=== PATIENT | male | born 1935 | race Caucasian/White ===

== ENCOUNTER 2023-02-25 10:39 | Inpatient (IN) | payer OTHER, MEDICARE ==
[2023-02-25 11:47] LABS: #Monocytes 0.4 thou/uL (0.11-0.59); #Neutrophils 7.4 thou/uL (1.40-6.50); %Basophils 0.4 % (0.0-1.0); %Eosinophils 0.5 % (0.0-10.0); %Lymphocytes 6.9 % (21.0-51.0); %Monocytes 5.2 % (0.0-10.0); %Neutrophils 86.9 % (42.0-75.0); Mean Corpuscular HGB CONC 33.8 g/dL (32.0-36.0); Mean Corpuscular Hemoglobin 32.1 pg (27.0-31.0); Mean Corpuscular Volume 94.9 fl (78.0-98.0); Mean Platelet Volume 10.7 fL (7.4-10.4); Platelet Count 167 10x3/uL (130-400); RBC Distribution Width 14.2 % (11.5-14.5); Red Blood Cell (RBC) Count 3.74 mill/uL (4.70-6.10); White Blood Cell (WBC) Count 8.5 10x3/uL (4.8-10.8)
[2023-02-25 12:07] LABS: INR-International Normal Ratio 1.1; Prothrombin Time 14.2 sec (12.0-14.7)
[2023-02-25 12:08] LABS: PTT 26.8 sec (22.9-36.1)
[2023-02-25 12:10] LABS: ALT (SGPT) 36 U/L (8-55); AST (SGOT) 59 U/L (5-34); Albumin 4.2 g/dL (3.4-4.8); Alkaline Phosphatase 76 U/L (40-110); Anion Gap 13 mmol/L (10-20); BUN (Urea Nitrogen) 20 mg/dL (8.4-25.7); Bilirubin, Total 0.7 mg/dL (0.2-1.2); Calc. Creatinine Clearance 0 mL/min (70-130); Calcium 9.7 mg/dL (7.8-10.44); Carbon Dioxide 31 mmol/L (23-31); Chloride 98 mmol/L (98-107); Estimated GFR 87; Globulin 2.5 g/dL (2.4-3.5); Glucose 114 mg/dL (83-110); Protein, Total 6.7 g/dL (5.8-8.1); Sodium 139 mmol/L (136-145)
[2023-02-25 12:32] LABS: CKMB 8.8 ng/mL (0-6.6)
[2023-02-25] MEDS ORDERED: Mag-Al 1200 mg/1200 mg/30 ML UDCUP PO PRN (14:22)
[2023-02-25] MEDS ORDERED: niCARdipine 25 MG in Sodium Chloride 0.9% 250 ML 250 ML IVPB PRN (14:22)
[2023-02-25] MEDS ORDERED: Acetaminophen 650 MG Suppository PR PRN (14:26)
[2023-02-25] MEDS ORDERED: Sodium Chloride 0.9% 1,000 ML IV SCH ×2 (14:30→19:45)
[2023-02-25] MEDS ORDERED: Electrolyte Replacement Protocol 1 EACH FS SCH (14:45)
[2023-02-25] MEDS ORDERED: Potassium Chloride 40 MEQ in Premix Bag 1 BAG IVPB SCH (14:45)
[2023-02-25] MEDS ORDERED: Electrolyte Replacement Protocol FS PRN (15:00)
[2023-02-25 16:12] LABS: Troponin I 0.049 ng/mL (< 0.028)
[2023-02-25] MEDS ORDERED: Potassium Chloride 20 MEQ/100 ML PREMIX BAG ONE ×2 (17:17→17:19)
[2023-02-25] MEDS: Potassium Chloride 20 MEQ in Premix Bag 1 BAG IVPB SCH ×3 (17:26→20:24)
[2023-02-25] MEDS: Famotidine/PF 20 mg/2ml Vial SLOW IVP SCH (20:25)
[2023-02-26] MEDS: Famotidine/PF 20 mg/2ml Vial SLOW IVP SCH ×2 (09:53→21:18)
[2023-02-26] MEDS ORDERED: Labetalol HCl 100 MG/20 ML VIAL SLOW IVP PRN (12:12)
[2023-02-26] MEDS ORDERED: Amlodipine 10 MG TAB PO SCH (12:12)
[2023-02-26 12:32] LABS: #Eosinphils 0.1 thou/uL (0.0-0.7); #Monocytes 0.5 thou/uL (0.11-0.59); %Basophils 0.4 % (0.0-1.0); %Eosinophils 1.4 % (0.0-10.0); %Lymphocytes 10.1 % (21.0-51.0); %Monocytes 6.6 % (0.0-10.0); Hemoglobin 12.6 g/dL (14.0-18.0); Mean Corpuscular HGB CONC 32.1 g/dL (32.0-36.0); Mean Corpuscular Hemoglobin 31.2 pg (27.0-31.0); Mean Platelet Volume 10.7 fL (7.4-10.4); Platelet Count 158 10x3/uL (130-400); RBC Distribution Width 14.3 % (11.5-14.5); Red Blood Cell (RBC) Count 4.04 mill/uL (4.70-6.10); White Blood Cell (WBC) Count 7.4 10x3/uL (4.8-10.8)
[2023-02-26 12:47] LABS: Anion Gap 15 mmol/L (10-20); BUN (Urea Nitrogen) 10 mg/dL (8.4-25.7); Calc. Creatinine Clearance 83 mL/min (70-130); Carbon Dioxide 25 mmol/L (23-31); Cardiac Risk 2.9 (Less than 4.5); Chloride 105 mmol/L (98-107); Cholesterol 134 mg/dl (< 200 Desired); Estimated GFR 92; Glucose 96 mg/dL (83-110); HDL Cholesterol 47 mg/dL (>60 Neg Risk); LDL Cholesterol, Calculated 73 mg/dL; Magnesium 2.1 mg/dL (1.6-2.6); Potassium 3.3 mmol/L (3.5-5.1); Sodium 142 mmol/L (136-145); Triglycerides 71 mg/dL (Less than 150)
[2023-02-26] MEDS: Potassium Chloride 20 MEQ in Premix Bag 1 BAG IVPB SCH (16:07)
[2023-02-26] MEDS: Atorvastatin Calcium 40 MG TAB PO SCH (21:18)
[2023-02-27] MEDS: hydrALAZINE 20 MG/ML VIAL SLOW IVP PRN (03:27)
[2023-02-27 05:29] LABS: #Basophils 0.1 thou/uL (0.0-0.2); #Monocytes 0.8 thou/uL (0.11-0.59); #Neutrophils 9.5 thou/uL (1.40-6.50); %Basophils 0.4 % (0.0-1.0); %Eosinophils 0.3 % (0.0-10.0); %Lymphocytes 8.1 % (21.0-51.0); %Monocytes 7.1 % (0.0-10.0); %Neutrophils 83.7 % (42.0-75.0); Hemoglobin 14.1 g/dL (14.0-18.0); Mean Corpuscular HGB CONC 32.4 g/dL (32.0-36.0); Mean Corpuscular Hemoglobin 31.5 pg (27.0-31.0); Mean Corpuscular Volume 97.3 fl (78.0-98.0); Mean Platelet Volume 12.1 fL (7.4-10.4); RBC Distribution Width 14.4 % (11.5-14.5); Red Blood Cell (RBC) Count 4.47 mill/uL (4.70-6.10); White Blood Cell (WBC) Count 11.3 10x3/uL (4.8-10.8)
[2023-02-27 05:35] LABS: Platelet Count 71 10x3/uL (130-400)
[2023-02-27 05:59] LABS: Anion Gap 17 mmol/L (10-20); BUN (Urea Nitrogen) 11 mg/dL (8.4-25.7); Calc. Creatinine Clearance 72 mL/min (70-130); Calcium 9.5 mg/dL (7.8-10.44); Carbon Dioxide 24 mmol/L (23-31); Chloride 105 mmol/L (98-107); Estimated GFR 88; Glucose 129 mg/dL (83-110); Potassium 4.5 mmol/L (3.5-5.1); Sodium 141 mmol/L (136-145)
[2023-02-27] MEDS: Levothyroxine Sodium 50 MCG TAB PO SCH (06:29)
[2023-02-27] MEDS: Acetaminophen 325 MG TAB PO PRN (08:55)
[2023-02-27] MEDS: Amlodipine 10 MG TAB PO SCH (08:55)
[2023-02-27] MEDS: Losartan 25 MG TAB PO SCH (08:56)
[2023-02-27] MEDS: Famotidine/PF 20 mg/2ml Vial SLOW IVP SCH ×2 (08:59→22:04)
[2023-02-27] MEDS: Dextrose 5% in Water 1,000 ML IV SCH (13:28)
[2023-02-27] MEDS ORDERED: Morphine 4 MG/ML VIAL SLOW IVP PRN (15:17)
[2023-02-27] MEDS ORDERED: OLANZapine 10 MG VIAL IM SCH (21:30)
[2023-02-27] MEDS ORDERED: Sterile Water 10 ML VIAL FS PRN (21:30)
[2023-02-27] MEDS: Atorvastatin Calcium 40 MG TAB PO SCH (23:53)
[2023-02-28] MEDS: Dextrose 5% in Water 1,000 ML IV SCH ×2 (03:19→15:32)
[2023-02-28 07:02] LABS: #Eosinphils 0.1 thou/uL (0.0-0.7); #Monocytes 0.4 thou/uL (0.11-0.59); #Neutrophils 5.5 thou/uL (1.40-6.50); %Basophils 0.4 % (0.0-1.0); %Eosinophils 1.6 % (0.0-10.0); %Lymphocytes 10.1 % (21.0-51.0); %Monocytes 5.8 % (0.0-10.0); %Neutrophils 81.8 % (42.0-75.0); Mean Corpuscular HGB CONC 32.7 g/dL (32.0-36.0); Mean Corpuscular Hemoglobin 31.8 pg (27.0-31.0); Mean Corpuscular Volume 97.3 fl (78.0-98.0); Mean Platelet Volume 10.7 fL (7.4-10.4); Platelet Count 175 10x3/uL (130-400); Red Blood Cell (RBC) Count 3.77 mill/uL (4.70-6.10); White Blood Cell (WBC) Count 6.8 10x3/uL (4.8-10.8)
[2023-02-28 07:23] LABS: Anion Gap 13 mmol/L (10-20); BUN (Urea Nitrogen) 13 mg/dL (8.4-25.7); Calc. Creatinine Clearance 66 mL/min (70-130); Calcium 9.1 mg/dL (7.8-10.44); Carbon Dioxide 27 mmol/L (23-31); Chloride 105 mmol/L (98-107); Estimated GFR 85; Glucose 183 mg/dL (83-110); Potassium 3.5 mmol/L (3.5-5.1); Sodium 141 mmol/L (136-145)
[2023-02-28] MEDS: Levothyroxine Sodium 50 MCG TAB PO SCH (07:35)
[2023-02-28] MEDS ORDERED: Potassium Chloride 20 MEQ TAB PO SCH (08:00)
[2023-02-28] MEDS: Losartan 25 MG TAB PO SCH (09:41)
[2023-02-28] MEDS: Amlodipine 10 MG TAB PO SCH (09:41)
[2023-02-28] MEDS: Famotidine/PF 20 mg/2ml Vial SLOW IVP SCH ×2 (09:41→19:52)
[2023-02-28] MEDS: Atorvastatin Calcium 40 MG TAB PO SCH (19:57)
[2023-03-01] MEDS: Levothyroxine Sodium 50 MCG TAB PO SCH (06:14)
[2023-03-01 07:38] LABS: #Eosinphils 0.1 thou/uL (0.0-0.7); #Monocytes 0.7 thou/uL (0.11-0.59); #Neutrophils 6.7 thou/uL (1.40-6.50); %Basophils 0.2 % (0.0-1.0); %Eosinophils 1.1 % (0.0-10.0); %Lymphocytes 7.4 % (21.0-51.0); %Monocytes 8.1 % (0.0-10.0); Hemoglobin 11.8 g/dL (14.0-18.0); Mean Corpuscular HGB CONC 32.6 g/dL (32.0-36.0); Mean Corpuscular Hemoglobin 32.3 pg (27.0-31.0); Mean Corpuscular Volume 99.2 fl (78.0-98.0); Platelet Count 153 10x3/uL (130-400); RBC Distribution Width 15.4 % (11.5-14.5); Red Blood Cell (RBC) Count 3.65 mill/uL (4.70-6.10); White Blood Cell (WBC) Count 8.1 10x3/uL (4.8-10.8)
[2023-03-01 07:54] LABS: Anion Gap 15 mmol/L (10-20); BUN (Urea Nitrogen) 22 mg/dL (8.4-25.7); Calc. Creatinine Clearance 66 mL/min (70-130); Calcium 9.1 mg/dL (7.8-10.44); Carbon Dioxide 27 mmol/L (23-31); Chloride 105 mmol/L (98-107); Estimated GFR 85; Glucose 207 mg/dL (83-110); Sodium 143 mmol/L (136-145)
[2023-03-01] MEDS: Losartan 25 MG TAB PO SCH (08:26)
[2023-03-01] MEDS: Famotidine/PF 20 mg/2ml Vial SLOW IVP SCH ×2 (08:26→22:02)
[2023-03-01] MEDS: Amlodipine 10 MG TAB PO SCH (08:26)
[2023-03-01] MEDS ORDERED: Dextrose 5% in Water 1,000 ML IV PRN (09:09)
[2023-03-01] MEDS ORDERED: HumaLOG 300 UNITS/3 ML VIAL SC PRN (09:09)
[2023-03-01] MEDS ORDERED: Dextrose 50% Abboject 50 ML SYRINGE SLOW IVP PRN (09:09)
[2023-03-01] MEDS ORDERED: Morphine 2 MG/ML VIAL SLOW IVP PRN (09:09)
[2023-03-01] MEDS ORDERED: Glucagon 1 MG/ML KIT IM PRN (09:09)
[2023-03-01] MEDS: Acetaminophen 325 MG TAB PO PRN (22:02)
[2023-03-01] MEDS: Atorvastatin Calcium 40 MG TAB PO SCH (22:02)
[2023-03-01] MEDS: hydrALAZINE 20 MG/ML VIAL SLOW IVP PRN ×2 (22:02→23:45)
[2023-03-02 05:57] LABS: #Eosinphils 0.1 thou/uL (0.0-0.7); #Monocytes 0.8 thou/uL (0.11-0.59); #Neutrophils 7.3 thou/uL (1.40-6.50); %Basophils 0.3 % (0.0-1.0); %Eosinophils 0.7 % (0.0-10.0); %Lymphocytes 6.4 % (21.0-51.0); %Monocytes 9.5 % (0.0-10.0); %Neutrophils 82.6 % (42.0-75.0); Hemoglobin 11.8 g/dL (14.0-18.0); Mean Corpuscular HGB CONC 31.6 g/dL (32.0-36.0); Mean Corpuscular Hemoglobin 32.1 pg (27.0-31.0); Mean Corpuscular Volume 101.4 fl (78.0-98.0); Mean Platelet Volume 10.8 fL (7.4-10.4); Platelet Count 133 10x3/uL (130-400); RBC Distribution Width 15.4 % (11.5-14.5); Red Blood Cell (RBC) Count 3.68 mill/uL (4.70-6.10); White Blood Cell (WBC) Count 8.8 10x3/uL (4.8-10.8)
[2023-03-02 06:34] LABS: Anion Gap 17 mmol/L (10-20); BUN (Urea Nitrogen) 34 mg/dL (8.4-25.7); Calc. Creatinine Clearance 66 mL/min (70-130); Calcium 8.9 mg/dL (7.8-10.44); Carbon Dioxide 25 mmol/L (23-31); Chloride 106 mmol/L (98-107); Estimated GFR 85; Glucose 233 mg/dL (83-110); Potassium 4.7 mmol/L (3.5-5.1); Sodium 143 mmol/L (136-145)
[2023-03-02] MEDS: Levothyroxine Sodium 50 MCG TAB PO SCH (06:43)
[2023-03-02] MEDS: Losartan 25 MG TAB PO SCH (08:54)
[2023-03-02] MEDS: Amlodipine 10 MG TAB PO SCH (08:55)
[2023-03-02] MEDS: Famotidine/PF 20 mg/2ml Vial SLOW IVP SCH ×2 (08:57→21:34)
[2023-03-02] MEDS: Acetaminophen 325 MG TAB PO PRN (12:55)
[2023-03-02] MEDS ORDERED: Sodium Bicarbonate Tab 325 MG TAB PER TUBE SCH (13:15)
[2023-03-02] MEDS ORDERED: Pancrelipase DR 12,000 1 CAP PER TUBE SCH (13:15)
[2023-03-02] MEDS ORDERED: Bisacodyl 10 MG SUPP PR SCH (14:15)
[2023-03-02] MEDS ORDERED: Sodium Chloride 0.9% 1,000 ML IV SCH (20:30)
[2023-03-02] MEDS ORDERED: OLANZapine 10 MG VIAL IM SCH (20:30)
[2023-03-02] MEDS ORDERED: Sterile Water 10 ML VIAL FS SCH (20:45)
[2023-03-02] MEDS: Atorvastatin Calcium 40 MG TAB PO SCH (21:36)
[2023-03-03 05:33] LABS: #Eosinphils 0.1 thou/uL (0.0-0.7); #Monocytes 0.6 thou/uL (0.11-0.59); #Neutrophils 7.6 thou/uL (1.40-6.50); %Basophils 0.2 % (0.0-1.0); %Eosinophils 0.9 % (0.0-10.0); %Lymphocytes 6.7 % (21.0-51.0); %Monocytes 6.8 % (0.0-10.0); %Neutrophils 85.2 % (42.0-75.0); Hemoglobin 13.5 g/dL (14.0-18.0); Mean Corpuscular HGB CONC 31.8 g/dL (32.0-36.0); Mean Corpuscular Hemoglobin 31.5 pg (27.0-31.0); Mean Corpuscular Volume 98.8 fl (78.0-98.0); Mean Platelet Volume 11.1 fL (7.4-10.4); Red Blood Cell (RBC) Count 4.29 mill/uL (4.70-6.10); White Blood Cell (WBC) Count 8.9 10x3/uL (4.8-10.8)
[2023-03-03 05:39] LABS: Platelet Count 126 10x3/uL (130-400)
[2023-03-03 05:57] LABS: Anion Gap 17 mmol/L (10-20); BUN (Urea Nitrogen) 30 mg/dL (8.4-25.7); Calc. Creatinine Clearance 76 mL/min (70-130); Calcium 9.3 mg/dL (7.8-10.44); Carbon Dioxide 24 mmol/L (23-31); Chloride 107 mmol/L (98-107); Estimated GFR 88; Glucose 155 mg/dL (83-110); Potassium 4.3 mmol/L (3.5-5.1); Sodium 144 mmol/L (136-145)
[2023-03-03] MEDS: Levothyroxine Sodium 50 MCG TAB PO SCH (06:35)
[2023-03-03] MEDS: Famotidine/PF 20 mg/2ml Vial SLOW IVP SCH ×2 (08:46→20:56)
[2023-03-03] MEDS: Losartan 25 MG TAB PO SCH (08:46)
[2023-03-03] MEDS: Amlodipine 10 MG TAB PO SCH (08:46)
[2023-03-03] MEDS: Rivastigmine 1.5 MG CAP PO SCH (08:47)
[2023-03-03] MEDS: Atorvastatin Calcium 40 MG TAB PO SCH (20:55)
[2023-03-04] MEDS: Levothyroxine Sodium 50 MCG TAB PO SCH (05:19)
[2023-03-04 05:43] LABS: #Eosinphils 0.1 thou/uL (0.0-0.7); #Monocytes 0.5 thou/uL (0.11-0.59); #Neutrophils 5.7 thou/uL (1.40-6.50); %Basophils 0.4 % (0.0-1.0); %Lymphocytes 10.1 % (21.0-51.0); %Monocytes 6.9 % (0.0-10.0); %Neutrophils 80.2 % (42.0-75.0); Mean Corpuscular HGB CONC 32.4 g/dL (32.0-36.0); Mean Corpuscular Hemoglobin 31.8 pg (27.0-31.0); Mean Corpuscular Volume 98.1 fl (78.0-98.0); Platelet Count 141 10x3/uL (130-400); RBC Distribution Width 14.6 % (11.5-14.5); Red Blood Cell (RBC) Count 3.77 mill/uL (4.70-6.10); White Blood Cell (WBC) Count 7.1 10x3/uL (4.8-10.8)
[2023-03-04 06:03] LABS: Anion Gap 14 mmol/L (10-20); BUN (Urea Nitrogen) 28 mg/dL (8.4-25.7); Calc. Creatinine Clearance 79 mL/min (70-130); Calcium 9.2 mg/dL (7.8-10.44); Carbon Dioxide 27 mmol/L (23-31); Chloride 108 mmol/L (98-107); Estimated GFR 90; Glucose 151 mg/dL (83-110); Potassium 3.9 mmol/L (3.5-5.1); Sodium 145 mmol/L (136-145)
[2023-03-04] MEDS: Famotidine/PF 20 mg/2ml Vial SLOW IVP SCH ×2 (08:31→21:23)
[2023-03-04] MEDS: Rivastigmine 1.5 MG CAP PO SCH (08:32)
[2023-03-04] MEDS: Losartan 25 MG TAB PO SCH (08:32)
[2023-03-04] MEDS: Amlodipine 10 MG TAB PO SCH (08:32)
[2023-03-04 13:58] VITALS: BMI 22.8
[2023-03-04] MEDS: Lactated Ringer's 1,000 ML IV SCH ×2 (15:11→23:24)
[2023-03-04] MEDS: Atorvastatin Calcium 40 MG TAB PO SCH (21:23)
[2023-03-05 05:32] LABS: #Eosinphils 0.1 thou/uL (0.0-0.7); #Monocytes 0.4 thou/uL (0.11-0.59); %Basophils 0.5 % (0.0-1.0); %Eosinophils 1.4 % (0.0-10.0); %Lymphocytes 12.8 % (21.0-51.0); %Monocytes 6.5 % (0.0-10.0); %Neutrophils 78.6 % (42.0-75.0); Hemoglobin 11.2 g/dL (14.0-18.0); Mean Corpuscular HGB CONC 32.9 g/dL (32.0-36.0); Mean Corpuscular Hemoglobin 31.7 pg (27.0-31.0); Mean Corpuscular Volume 96.3 fl (78.0-98.0); Mean Platelet Volume 11.3 fL (7.4-10.4); Platelet Count 140 10x3/uL (130-400); RBC Distribution Width 14.5 % (11.5-14.5); Red Blood Cell (RBC) Count 3.53 mill/uL (4.70-6.10); White Blood Cell (WBC) Count 6.3 10x3/uL (4.8-10.8)
[2023-03-05 05:57] LABS: Anion Gap 13 mmol/L (10-20); BUN (Urea Nitrogen) 23 mg/dL (8.4-25.7); Calc. Creatinine Clearance 86 mL/min (70-130); Calcium 9.1 mg/dL (7.8-10.44); Carbon Dioxide 26 mmol/L (23-31); Chloride 110 mmol/L (98-107); Estimated GFR 91; Glucose 135 mg/dL (83-110); Potassium 3.6 mmol/L (3.5-5.1); Sodium 145 mmol/L (136-145)
[2023-03-05] MEDS: Levothyroxine Sodium 50 MCG TAB PO SCH (06:17)
[2023-03-05] MEDS: Lactated Ringer's 1,000 ML IV SCH ×2 (09:05→18:33)
[2023-03-05] MEDS: Rivastigmine 1.5 MG CAP PO SCH (09:08)
[2023-03-05] MEDS: Famotidine/PF 20 mg/2ml Vial SLOW IVP SCH ×2 (09:08→21:22)
[2023-03-05] MEDS: Losartan 25 MG TAB PO SCH (09:08)
[2023-03-05] MEDS: Amlodipine 10 MG TAB PO SCH (09:08)
[2023-03-05] MEDS: Atorvastatin Calcium 40 MG TAB PO SCH (21:22)
[2023-03-06] MEDS: Lactated Ringer's 1,000 ML IV SCH ×3 (03:15→21:14)
[2023-03-06 05:04] LABS: #Eosinphils 0.1 thou/uL (0.0-0.7); #Monocytes 0.4 thou/uL (0.11-0.59); #Neutrophils 5.9 thou/uL (1.40-6.50); %Basophils 0.4 % (0.0-1.0); %Eosinophils 1.5 % (0.0-10.0); %Lymphocytes 10.4 % (21.0-51.0); %Monocytes 5.8 % (0.0-10.0); %Neutrophils 81.4 % (42.0-75.0); Hemoglobin 11.4 g/dL (14.0-18.0); Mean Corpuscular HGB CONC 32.2 g/dL (32.0-36.0); Mean Corpuscular Hemoglobin 31.9 pg (27.0-31.0); Mean Platelet Volume 11.2 fL (7.4-10.4); Platelet Count 128 10x3/uL (130-400); RBC Distribution Width 13.9 % (11.5-14.5); Red Blood Cell (RBC) Count 3.57 mill/uL (4.70-6.10); White Blood Cell (WBC) Count 7.3 10x3/uL (4.8-10.8)
[2023-03-06 05:11] LABS: Mean Corpuscular Volume 99.2 fl (78.0-98.0)
[2023-03-06 05:28] LABS: Anion Gap 13 mmol/L (10-20); BUN (Urea Nitrogen) 21 mg/dL (8.4-25.7); Calc. Creatinine Clearance 94 mL/min (70-130); Calcium 8.9 mg/dL (7.8-10.44); Carbon Dioxide 26 mmol/L (23-31); Chloride 108 mmol/L (98-107); Estimated GFR 94; Glucose 117 mg/dL (83-110); Potassium 3.6 mmol/L (3.5-5.1); Sodium 143 mmol/L (136-145)
[2023-03-06] MEDS: Levothyroxine Sodium 50 MCG TAB PO SCH (06:03)
[2023-03-06] MEDS: Famotidine/PF 20 mg/2ml Vial SLOW IVP SCH ×2 (10:51→21:13)
[2023-03-06] MEDS: Losartan 25 MG TAB PO SCH (10:52)
[2023-03-06] MEDS: Rivastigmine 1.5 MG CAP PO SCH (10:52)
[2023-03-06] MEDS: Amlodipine 10 MG TAB PO SCH (10:52)
[2023-03-06] MEDS: Acetaminophen 325 MG TAB PO PRN (21:12)
[2023-03-06] MEDS: Atorvastatin Calcium 40 MG TAB PO SCH (21:12)
[2023-03-07] MEDS: Lactated Ringer's 1,000 ML IV SCH (04:48)
[2023-03-07 05:03] LABS: #Eosinphils 0.1 thou/uL (0.0-0.7); #Monocytes 0.7 thou/uL (0.11-0.59); #Neutrophils 7.6 thou/uL (1.40-6.50); %Basophils 0.4 % (0.0-1.0); %Eosinophils 1.1 % (0.0-10.0); %Lymphocytes 9.1 % (21.0-51.0); %Neutrophils 82.1 % (42.0-75.0); Mean Corpuscular HGB CONC 31.5 g/dL (32.0-36.0); Mean Corpuscular Hemoglobin 31.8 pg (27.0-31.0); Mean Corpuscular Volume 101.1 fl (78.0-98.0); Mean Platelet Volume 12.2 fL (7.4-10.4); RBC Distribution Width 13.7 % (11.5-14.5); Red Blood Cell (RBC) Count 3.77 mill/uL (4.70-6.10); White Blood Cell (WBC) Count 9.3 10x3/uL (4.8-10.8)
[2023-03-07 05:17] LABS: Platelet Count 76 10x3/uL (130-400)
[2023-03-07 05:35] LABS: BUN (Urea Nitrogen) 17 mg/dL (8.4-25.7); Calc. Creatinine Clearance 94 mL/min (70-130); Calcium 8.6 mg/dL (7.8-10.44); Carbon Dioxide 17 mmol/L (23-31); Chloride 112 mmol/L (98-107); Estimated GFR 94; Glucose 102 mg/dL (83-110); Potassium 4.5 mmol/L (3.5-5.1); Sodium 143 mmol/L (136-145)
[2023-03-07 05:36] LABS: Anion Gap 19 mmol/L (10-20)
[2023-03-07] MEDS: Levothyroxine Sodium 50 MCG TAB PO SCH (07:35)
[2023-03-07 08:17] VITALS: BP 151/74; TEMP 97.4
[2023-03-07] MEDS: Rivastigmine 1.5 MG CAP PO SCH (08:30)
[2023-03-07] MEDS: Losartan 25 MG TAB PO SCH (08:30)
[2023-03-07] MEDS: Amlodipine 10 MG TAB PO SCH (08:30)
[2023-03-07] MEDS: Famotidine/PF 20 mg/2ml Vial SLOW IVP SCH (08:30)
== END 2023-03-07 09:55 | disposition home or self-care (01) | DRG 83 ==
LOC: ERS 10:39 → ERHOLD 14:26 → CCU 18:56 → NEURO 02-26 18:59 → 2SE 03-02 10:13
PROVIDERS: ADMIT Family Medicine; ATTEND Hospitalist
PROC: 0T9B70Z Drainage of Bladder with Drainage Device, Via Natural or Artificial Opening (ICD-10-PCS; principal; 2023-03-05)
DX: S06.2XAA Diffuse traumatic brain injury with loss of consciousness status unknown, initial encounter (principal); G93.49 Other encephalopathy; E03.9 Hypothyroidism, unspecified; E78.5 Hyperlipidemia, unspecified; I10 Essential (primary) hypertension; I48.91 Unspecified atrial fibrillation; E87.6 Hypokalemia; K21.9 Gastro-esophageal reflux disease without esophagitis; M25.511 Pain in right shoulder; F03.90 Unspecified dementia, unspecified severity, without behavioral disturbance, psychotic disturbance, mood disturbance, and anxiety; R29.6 Repeated falls; M51.36 Other intervertebral disc degeneration, lumbar region; R73.9 Hyperglycemia, unspecified; N40.1 Benign prostatic hyperplasia with lower urinary tract symptoms; M79.2 Neuralgia and neuritis, unspecified; R13.12 Dysphagia, oropharyngeal phase; R33.9 Retention of urine, unspecified; W19.XXXA Unspecified fall, initial encounter; Y92.89 Other specified places as the place of occurrence of the external cause; Z95.0 Presence of cardiac pacemaker; Z98.890 Other specified postprocedural states; Z91.81 History of falling
CPT/HCPCS: 36415; 36416; 70450; 72100; 72125; 74018; 74230; 80048; 80053; 80061; 82553; 83735; 84484; 85025; 85610; 85730; 93005; 93970; J0360; J2270; J3480; J7050; J7070; J7120; S0028